=== PATIENT | male | born 1985 | race Caucasian/White ===

== ENCOUNTER 2016-05-06 11:43 | Emergency (ER) | payer BC ==
[2016-05-06 13:19] VITALS: BP 124/77
--- NOTE | 2016-05-06 13:52 | UC ---
Respiratory Complaint HPI - History of Current Complaint Chief Complaint: UCRespiratory Stated Complaint: COUGH Time Seen by Provider: 05/06/16 13:43 Hx Obtained From: Patient Onset/Duration: Gradual Onset, Lasting Weeks - 3, Still Present - Allergies/Home Medications Allergies/Adverse Reactions: Allergies Allergy/AdvReac Type Severity Reaction Status Date / Time Cefaclor [From [facility]] Allergy Intermediate Hives Verified 05/06/16 13:19 PMH/Surg Hx/FS Hx/Imm Hx Respiratory History Of: Denies: Asthma GI/ History Of: Denies: Gastroesophageal Reflux - Surgical History Surgical History: Yes Surgery Procedure, Year, and Place: REPAIR OF RIGHT EARDRUM - Family History Known Family History: Positive: Diabetes Negative: Cardiac Disease, Hypertension - Social History Alcohol Use: Occasionally Substance Use Type: None Smoking Status (MU): Never Smoked Tobacco Have You Smoked in the Last Year: No - Immunization History Most Recent Influenza Vaccination: 2015 Physical Exam Vital Signs: Initial Vital Signs Temp 98.8 F 05/06/16 13:13 Pulse 92 05/06/16 13:13 Resp 20 05/06/16 13:13 BP 124/77 05/06/16 13:13 Pulse Ox 99 05/06/16 13:13 UC Diagnostic Evaluation - Laboratory O2 Sat by Pulse Oximetry: 99
--- NOTE | 2016-05-06 14:01 | UC ---
Respiratory Complaint HPI - HPI Summary HPI Summary: Patient has had a dry cough for 4 weeks, denies fever, sinus congestion or any other symptoms. - History of Current Complaint Chief Complaint: UCRespiratory Stated Complaint: COUGH Time Seen by Provider: 05/06/16 13:43 Hx Obtained From: Patient Onset/Duration: Gradual Onset, Lasting Weeks Timing: Constant Severity Initially: Mild Severity Currently: Mild Pain Intensity: 3 Pain Scale Used: 0-10 Numeric Character: Cough: Nonproductive Aggravating Factors: Nothing Alleviating Factors: Nothing Associated Signs And Symptoms: Positive: Negative - Risk Factors Pulmonary Embolism Risk Factors: Negative Cardiac Risk Factors: Negative Pseudomonas Risk Factors: Negative Tuberculosis Risk Factors: Negative - Allergies/Home Medications Allergies/Adverse Reactions: Allergies Allergy/AdvReac Type Severity Reaction Status Date / Time Cefaclor [From [facility]] Allergy Intermediate Hives Verified 05/06/16 13:19 PMH/Surg Hx/FS Hx/Imm Hx Previously Healthy: Yes Respiratory History Of: Denies: Asthma GI/ History Of: Denies: Gastroesophageal Reflux - Surgical History Surgical History: Yes Surgery Procedure, Year, and Place: REPAIR OF RIGHT EARDRUM - Family History Known Family History: Positive: Diabetes Negative: Cardiac Disease, Hypertension - Social History Alcohol Use: Occasionally Substance Use Type: None Smoking Status (MU): Never Smoked Tobacco Have You Smoked in the Last Year: No - Immunization History Most Recent Influenza Vaccination: 2016 Review of Systems Constitutional: Negative Skin: Negative Eyes: Negative ENT: Negative Respiratory: Cough Cardiovascular: Negative Gastrointestinal: Negative Genitourinary: Negative Motor: Negative Neurovascular: Negative Musculoskeletal: Negative Neurological: Negative Psychological: Negative All Other Systems Reviewed And Are Negative: Yes Physical Exam Triage Information Reviewed: Yes Appearance: Well-Appearing, Well-Nourished, Pain Distress Vital Signs: Initial Vital Signs Temp 98.8 F 05/06/16 13:13 Pulse 92 05/06/16 13:13 Resp 20 05/06/16 13:13 BP 124/77 05/06/16 13:13 Pulse Ox 99 05/06/16 13:13 Vital Signs Reviewed: Yes Eye Exam: Normal Eyes: Positive: Conjunctiva Clear ENT Exam: Normal ENT: Positive: Hearing grossly normal, Pharyngeal erythema, TMs normal Dental Exam: Normal Neck exam: Normal Neck: Positive: Supple, Nontender, No Lymphadenopathy Respiratory: Positive: Chest non-tender, No respiratory distress, No accessory muscle use, Wheezing, Inspiration - upper airway, Other: - cough presnet Cardiovascular Exam: Normal Cardiovascular: Positive: RRR, No Murmur, Pulses Normal Abdominal Exam: Normal Abdomen Description: Positive: Nontender, No Organomegaly, Soft Bowel Sounds: Positive: Present Musculoskeletal Exam: Normal - moving without difficulty Neurological Exam: Normal Neurological: Positive: Alert, Muscle Tone Normal Psychological Exam: Normal Skin Exam: Normal UC Diagnostic Evaluation - Laboratory O2 Sat by Pulse Oximetry: 99 Respiratory Course/Dx - Course Course Of Treatment: hx obtained, exam performed, medications reviewed, prednisone prescribed. - Differential Dx/Diagnosis Differential Diagnosis/HQI/PQRI: Asthma, Bronchitis, Influenza, Laryngitis, Sinusitis Provider Diagnoses: cough. wheezing Discharge - Discharge Plan Condition: Stable Disposition: HOME Patient Education Materials: Bronchospasm (ED) Additional Instructions: take the presnisone as prescribed, Increase your fluid intake, get plenty of rest allow your body to fight off the virus effectively. Warm or cold fluids which ever feels best.
== END 2016-05-06 14:08 | disposition home or self-care (01) ==
LOC: UCCORT 11:43
DX: R05 Cough (principal); R06.2 Wheezing; Z88.1 Allergy status to other antibiotic agents
CPT/HCPCS: 99212; G0463

== ENCOUNTER 2018-01-17 08:03 | Emergency (ER) | payer BC ==
[2018-01-17 08:23] VITALS: BP 114/82
[2018-01-17] MEDS ORDERED: Albuterol HFA INHALER* 8 gm MDI INH ONE (09:31)
--- NOTE | 2018-01-17 09:41 | ED ---
Respiratory - HPI Summary HPI Summary: pt presents for evaluation of a very mild intermittent cough. he states that rarely he has a wheeze. his daughter and fiance are sick. he denies staying up at night coughing. he denies any fever. he states that once or twice he had a small amount of colored sputum. he denies any heaviness in his chest. - History of Current Complaint Chief Complaint: UCRespiratory Stated Complaint: COUGH Hx Obtained From: Patient Onset/Duration: Gradual Onset Initial Severity: Mild Current Severity: None Pain Intensity: 0 Character: Wheezing - very mild and intermittent, Cough (Nonproductive) - mostly non-productive, occasionally and rarely productive Sputum Amount: Scant Sputum Color: Green - Allergy/Home Medications Allergies/Adverse Reactions: Allergies Allergy/AdvReac Type Severity Reaction Status Date / Time cefaclor [From [facility]] Allergy Intermediate Hives Verified 01/17/18 08:23 Home Medications: Home Medications Multivitamin [Multivitamins] 1 cap PO DAILY 01/17/18 [History Confirmed 01/17/18 ] PMH/Surg Hx/FS Hx/Imm Hx Previously Healthy: Yes Respiratory History: Denies: Hx Asthma - Surgical History Surgery Procedure, Year, and Place: REPAIR OF RIGHT EARDRUM Infectious Disease History: No Infectious Disease History: Denies: Traveled Outside the [place] in Last 30 Days - Family History Known Family History: Positive: Diabetes Negative: Cardiac Disease, Hypertension - Social History Alcohol Use: Occasionally Substance Use Type: Reports: None Smoking Status (MU): Never Smoked Tobacco Have You Smoked in the Last Year: No Review of Systems Constitutional: Negative Eyes: Negative ENT: Negative Cardiovascular: Negative Positive: Cough. Negative: Shortness Of Breath Gastrointestinal: Negative Genitourinary: Negative Musculoskeletal: Negative Skin: Negative Neurological: Negative Psychological: Normal All Other Systems Reviewed And Are Negative: No Physical Exam Triage Information Reviewed: Yes Vital Signs On Initial Exam: Initial Vitals Temp Pulse Resp BP Pulse Ox 97.6 F 79 18 114/82 100 01/17/18 08:19 01/17/18 08:19 01/17/18 08:19 01/17/18 08:19 01/17/18 08:19 Vital Signs Reviewed: Yes Appearance: Positive: Well-Appearing, No Pain Distress, Well-Nourished Skin: Positive: Warm, Dry Head/Face: Positive: Normal Head/Face Inspection Eyes: Positive: Normal, EOMI, SHAYAN ENT: Positive: Normal ENT inspection, Hearing grossly normal, Pharynx normal Neck: Positive: Supple, Nontender Respiratory/Lung Sounds: Positive: Clear to Auscultation, Breath Sounds Present Cardiovascular: Positive: Normal, RRR Abdomen Description: Positive: Nontender, Soft Bowel Sounds: Positive: Present Musculoskeletal: Positive: Normal, Strength/ROM Intact Neurological: Positive: Normal, Sensory/Motor Intact, Alert, Oriented to Person Place, Time, CN Intact II-III Psychiatric: Positive: Normal AVPU Assessment: Alert Diagnostics - Vital Signs Vital Signs Temp Pulse Resp BP Pulse Ox 01/17/18 08:19 97.6 F 79 18 114/82 100 - Laboratory Lab Statement: Any lab studies that have been ordered have been reviewed, and results considered in the medical decision making process. Disposition - Course Course Of Treatment: pt is non-toxic. he is speaking in full sentences. he has absolutely no wheezing or chest congestion or sinus congestion. will give him a spacer and albuterol inhaler with instructions. he was instructed to take tylenol and motrin for pain. - Diagnoses Provider Diagnoses: Cold Discharge - Sign-Out/Discharge Documenting (check all that apply): Patient Departure All imaging exams completed and their final reports reviewed: Yes - Discharge Plan Condition: Stable Disposition: HOME Patient Education Materials: Cold Symptoms (ED) Referrals: Kishan Morin MD [Primary Care Provider] - Additional Instructions: follow up with your primary care physician. return if worse or any new symptoms. TAke all medications as instructed. - Billing Disposition and Condition Condition: STABLE Disposition: Home
== END 2018-01-17 09:50 | disposition home or self-care (01) ==
LOC: UCCORT 08:03
DX: J00 Acute nasopharyngitis [common cold] (principal); Z88.1 Allergy status to other antibiotic agents
CPT/HCPCS: 71046; 99212; A9270-GY; G0463

== ENCOUNTER 2018-11-09 17:03 | Emergency (ER) | payer BC ==
[2018-11-09 17:25] VITALS: BP 125/89
--- NOTE | 2018-11-09 17:37 | UC ---
Skin Complaint HPI - HPI Summary HPI Summary: Pt presents with c/o of worsening crusting wounds on left side of cheek and now on left upper ear. Pt was seen by PCP and told he had a "boil" and is currently taking doxycycline Q12h with no improvement. - History of Current Complaint Chief Complaint: UCSkin Time Seen by Provider: 11/09/18 17:22 Stated Complaint: SKIN CONCERN Hx Obtained From: Patient Onset/Duration: Gradual Onset, Lasting Days Skin Exposure Onset/Duration: Days Ago Timing: Constant Onset Severity: Mild Current Severity: Mild Pain Intensity: 1 Location: Discrete - left side of cheek, and now upper ear Character: Redness, Painful Aggravating Factor(s): Touch Alleviating Factor(s): Nothing Associated Signs & Symptoms: Positive: Rash - Allergy/Home Medications Allergies/Adverse Reactions: Allergies Allergy/AdvReac Type Severity Reaction Status Date / Time cefaclor [From [facility]] Allergy Intermediate Hives Verified 11/09/18 17:25 PMH/Surg Hx/FS Hx/Imm Hx Previously Healthy: Yes - Surgical History Surgical History: Yes Surgery Procedure, Year, and Place: REPAIR OF RIGHT EARDRUM - Family History Known Family History: Positive: Diabetes Negative: Cardiac Disease, Hypertension - Social History Occupation: Employed Full-time Lives: With Family Alcohol Use: Rare Substance Use Type: None Smoking Status (MU): Never Smoked Tobacco Have You Smoked in the Last Year: No - Immunization History Most Recent Influenza Vaccination: 2016 Vaccination Up to Date: Yes Review of Systems All Other Systems Reviewed And Are Negative: Yes Constitutional: Positive: Negative Skin: Positive: Rash Eyes: Positive: Negative ENT: Positive: Negative Respiratory: Positive: Negative Cardiovascular: Positive: Negative Gastrointestinal: Positive: Negative Genitourinary: Positive: Negative Motor: Positive: Negative Neurovascular: Positive: Negative Musculoskeletal: Positive: Negative Neurological: Positive: Negative Psychological: Positive: Negative Is Patient Immunocompromised?: No Physical Exam Triage Information Reviewed: Yes Appearance: Well-Appearing Vital Signs: Initial Vital Signs Temp 98.1 F 11/09/18 17:21 Pulse 105 11/09/18 17:21 Resp 16 11/09/18 17:21 BP 125/89 11/09/18 17:21 Pulse Ox 99 11/09/18 17:21 Vital Signs Reviewed: Yes Eye Exam: Normal ENT: Positive: Hearing grossly normal Dental Exam: Normal Neck exam: Normal Respiratory: Positive: No respiratory distress Musculoskeletal Exam: Normal Neurological Exam: Normal Psychological Exam: Normal Skin Exam: Other - garcia,crusted vessicles on left side of cheek and upper ear fold. Pt states that rash is mildly itchy but is not imrpoving since beginning ddoxycycline on 11/05/18 Course/Dx - Differential Diagnoses - Skin Complaint Differential Diagnoses: Cellulitis, Impetigo - Diagnoses Provider Diagnosis: Impetigo Discharge ED - Sign-Out/Discharge Documenting (check all that apply): Patient Departure All imaging exams completed and their final reports reviewed: No Studies - Discharge Plan Condition: Stable Disposition: HOME Prescriptions: Mupirocin 2% OINT* [Bactroban 2 % Oint*] 1 applic TOPICAL BID 10 Days #1 tube Patient Education Materials: Impetigo (ED) Referrals: Kishan Morin MD [Primary Care Provider] - If Needed - Billing Disposition and Condition Condition: STABLE Disposition: Home
== END 2018-11-09 17:44 | disposition home or self-care (01) ==
LOC: UCCORT 17:03
DX: L01.00 Impetigo, unspecified (principal); Z88.1 Allergy status to other antibiotic agents
CPT/HCPCS: 99212; G0463